=== PATIENT | female | born 1960 | race Caucasian/White ===

== ENCOUNTER 2020-11-16 14:03 | Emergency (ER) | payer BC ==
[~2020-11-16] VITALS: Ht 167.6 cm; Wt 121.8 kg
[2020-11-16] MEDS ORDERED: VENLAFAXINE HY225 MG PO (14:41)
[2020-11-16] MEDS ORDERED: LOSARTAN/HCT1 TA1 PO (14:41)
[2020-11-16] MEDS ORDERED: ESTRACE2 M1 PO (14:42)
[2020-11-16] MEDS ORDERED: SIMVASTATIN10 MG PO (14:42)
[2020-11-16 16:48] LABS: HEMATOCRIT 37.3 % (37.0-47.0); HEMOGLOBIN 12.4 g/dl (12.0-16.0); IMMATURE GRANULOCYTES 0.4 % (0.0-5.0); MEAN CELL VOLUME 94.9 fL CALC (80.0-100.0); MEAN CORPUSCULAR HGB 31.6 pG CALC (26.0-32.0); MEAN CORPUSCULAR HGB CONC 33.2 g/dL CAL (32.0-36.0); NEUT# 7.37 thou/uL (2.00-7.15); RED BLOOD COUNT 3.93 mill/uL (4.20-5.60); RED CELL DISTRI WIDTH 12.9 % (11.5-15.5)
[2020-11-16 17:24] LABS: ALBUMIN 4.3 g/dL (3.2-5.0); ALKALINE PHOSPHATASE 63 u/l (38-126); ANION GAP 12 (6-22 (CALC)); BUN 11 mg/dL (8-23); BUN/CREATININE RATIO 18 (12-20 (CALC)); CARBON DIOXIDE 27 mmol/l (22-30); CHLORIDE 103 mmol/l (95-108); CREATININE 0.6 mg/dL (0.5-1.0); GFR > 60 ML/MIN (>=60 (CALC)); GFR FOR AFR.AMER. > 60 ML/MIN (>=60 (CALC)); LIPASE 85 u/l (23-300); POTASSIUM 4.7 mmol/l (3.5-5.1); SGOT/AST 95 u/l (9-36); SODIUM 137 mmol/l (137-146); TOTAL PROTEIN 7.1 g/dL (6.3-8.2)
[2020-11-16] MEDS ORDERED: HYDROCO/APAP1 TA9 PO (18:10)
[2020-11-16 18:14] VITALS: BP 109/53
== END 2020-11-16 18:26 | disposition home or self-care (01) | DRG 392 ==
LOC: ED 14:03
PROVIDERS: Family Medicine
DX: R10.31 Right lower quadrant pain (principal); I10 Essential (primary) hypertension; E78.00 Pure hypercholesterolemia, unspecified